=== PATIENT | male | born 1945 | race Caucasian/White ===

== ENCOUNTER 2016-10-21 09:58 | Day surgery (SDC) | payer MEDICARE, OTHER ==
[2016-10-21] VITALS (8 sets, daily range): BP systolic 112–169; BP diastolic 54–87; PULSE 51–74; RESP 14–16; O2SAT 95–100
[~2016-10-21] VITALS: Ht 190.5 cm; Wt 127.8 kg
[~2016-10-21 09:58] MED LIST: ASPI-973 PO; ESOM20CA28 PO; Gentamicin Inj 120 MG in Dextrose 5% 50 ML IV ONE; HYDR25TA4 PO; LISI-567 PO; METF500T4 PO; METO-272 PO; SIMV20TA4 PO
[2016-10-21] MEDS ORDERED: fentaNYL-PF 50 mCg/mL 2 mL Inj ONE (09:59)
[2016-10-21] MEDS ORDERED: Rocuronium 10 mg/mL 5 mL Inj ONE (09:59)
[2016-10-21] MEDS ORDERED: Propofol 10,000 mCg/mL 20 mL Inj ONE (09:59)
[2016-10-21] MEDS ORDERED: Glycopyrrolate 0.2 mg/mL 5 mL Inj ONE (09:59)
[2016-10-21] MEDS ORDERED: Ondansetron 2 mg/mL 2 mL Inj ONE (09:59)
[2016-10-21] MEDS ORDERED: Neostigmine 1 mg/mL 5 mL Inj ONE (09:59)
[2016-10-21] MEDS ORDERED: MetoCLOpramide 5 mg/mL 2 mL Inj ONE (09:59)
[2016-10-21] MEDS: Lactated Ringer's 1,000 ML IV SCH ×2 (12:21→13:03)
[2016-10-21] MEDS ORDERED: Famotidine 20 mg/50 mL NS Premix IV ONE (12:51)
[2016-10-21] MEDS ORDERED: Belladonna Alk-Opium 60 mg Rectal Suppository RECTAL ONE ×2 (12:53→13:21)
[2016-10-21] MEDS ORDERED: Lactated Ringer's 500 ML IV PRN (13:19)
[2016-10-21] MEDS ORDERED: Lactated Ringer's 1,000 ML IV SCH (13:19)
--- NOTE | 2016-10-21 13:19 | PCM.HPANE ---
Patient Data Surgeon Admitting Provider: Attending Provider:Codi Servin MD Primary Care Physician:Jere Valencia MD Other Provider:[facility] Anesthesia Reason for Visit Left Ureteral Stone Ht/WT & BMI Height (Feet): 6 Height (Inches): 3 Weight (Kilograms): 120.9 Body Mass Index 33.00 Allergies Coded Allergies: Penicillins (Verified Allergy, Unknown, 10/21/16) Diabetes History Hx Diabetes?: Yes Type of Diabetes: Type II Glycemic Control: Oral Medication MRSA MRSA: No Medications Blood Thinner: Aspirin Last Dose Blood Thinner: Oct 18, 2016 Hypertension Medication: Yes Home Meds Incl Beta Nicholas: Yes (metoprolol) Reported Medications Simvastatin 20 Mg Mmytxj64 Mg PO HS Ref 0 10/20/16 Esomeprazole Magnesium (Nexium)20 Mg Capsule.dr20 Mg PO DAILY Ref 0 10/20/16 Metformin 500 Mg Tablet1,000 Mg PO BID Ref 0 10/20/16 Metoprolol Succinate ER 50 Mg Tab.er.24h50 Mg PO DAILY Ref 0 10/20/16 Lisinopril 20 Mg Hqvavo65 Mg PO DAILY 30 Days Ref 0 10/20/16 Hydrochlorothiazide 25 Mg Bmdahz40 Mg PO DAILY 30 Days Ref 0 10/20/16 Aspirin 81 Mg Npjzxa51 Mg PO DAILY Ref 0 10/20/16 History History of ENT Problems?: No Hx of Heart Problems?: Yes Cardiovascular History: Positive for:: Coronary Artery Disease (hyperlipedemia ) Hypertension Hx of Respiratory Problem?: No Hx Neurologic Problems?: No Hx of GI Problems?: Yes Gastrointestinal History: Positive for:: Gastroesphageal Reflux Hx of Problems?: Yes Genitourinary History: Positive for:: Kidney Stones Urinary Tract Infection Male Hx: Positive for:: Prostate Problems Skin History: Denies:: History Skin Disorders? Hx Musculoskeletal Problems?: Yes Musculoskeletal History: Positive for:: Back Injury (back pain) Hx Diabetes: Yes Stop/Bang Risk Assessment Category Category 1A: Patient has history of documented sleep apnea, and HAS NOT received any narcotic, sedative or anesthesia administration during this stay. Category 1B: Patient has history of documented sleep apnea, and HAS received any narcotic , sedative or anesthesia administration during this stay Category 2: Patient has SUSPECTED Obstructive Sleep Apnea, and HAS received any narcotic , sedative or anesthesia administration during this stay. Category 3: Patient has SUSPECTED Obstructive Sleep Apnea and HAS NOT received narcotic, sedative or anesthesia administration during this stay. Category 4: Outpatient in Procedural Areas with known sleep apnea or who screen positive for High Risk via the STOP/BANG questionnaire. Exam Exam General Appearance: Alert, Oriented X3, Cooperative, No Acute Distress HEENT/AIRWAY: MP 2, Neck Movement (FROM, large neck circumference) Lungs: Clear to Auscultation, Normal Air Movement Heart: Exam Unremarkable, Regular Rate/Rhythm, No Murmurs/Rubs/Gallops Plan Impression Patient chart reviewed, patient interviewed and anesthestic plan with risks, benefits, and alternatives discussed, and informed consent obtained. NPO Status: > 8 hrs ASA Physical Status: ASA3 Severe Disease (BMI 35) Anesthetic Support Modalities: [place] Scope Anesthetic Plan: GA Bene/Risks/Altern/Consents: Yes HP Complete Prior to Induction: Yes Medardo Esparza MD Oct 21, 2016 11:45
[2016-10-21] MEDS ORDERED: hydrALAZINE 20 mg/mL Inj IVPUSH PRN (13:20)
[2016-10-21] MEDS ORDERED: Ondansetron 2 mg/mL 2 mL Inj IVPUSH PRN (13:20)
[2016-10-21] MEDS ORDERED: MetoCLOpramide 5 mg/mL 2 mL Inj IVPUSH PRN (13:20)
[2016-10-21] MEDS ORDERED: Phenylephrine 10,000 mCg/mL Inj IVPUSH PRN (13:20)
[2016-10-21] MEDS ORDERED: fentaNYL-PF 50 mCg/mL 2 mL Inj IVPUSH PRN (13:20)
[2016-10-21] MEDS ORDERED: Labetalol 5 mg/mL 4 mL Inj IV PRN (13:20)
[2016-10-21] MEDS ORDERED: Atropine 0.4 mg/mL Inj IVPUSH PRN (13:20)
[2016-10-21] MEDS ORDERED: EPHEDrine Sulfate 50 mg/mL Inj IVPUSH PRN (13:20)
[2016-10-21] MEDS ORDERED: Ondansetron 8 mg ODT Tablet PO PRN (13:35)
[2016-10-21] MEDS ORDERED: HYDROcodone-APAP 5-325 mg Tablet PO PRN (13:35)
[2016-10-21] MEDS ORDERED: oxyCODONE-Acetamin 5-325 mg Tablet PO PRN (13:35)
--- NOTE | 2016-10-21 13:48 | PCM.ANEP2 ---
Post Anesthesia Evaluation ASA/CMS Post Anesthesia VS in Patient's Normal Range?: Yes Resp Stable; Airway Patent?: Yes CV Function & Hydration Stable: Yes Mental Status Recovered?: Yes Pain control Satisfactory?: Yes N/V Control Satisfactory?: Yes Medardo Esparza MD Oct 21, 2016 13:48
--- NOTE | 2016-10-21 13:48 | PCM.ANEP1 ---
Post Anesthesia Phase 1 PACU Phase 1 Assessment Vital Signs Vital Signs Date Time Temp Pulse Resp B/P Pulse Ox O2 Delivery O2 Flow Rate FiO2 10/21/16 13:40 59 16 149/81 100 Simple Mask 10 10/21/16 13:35 37 58 16 169/87 100 Simple Mask 10 10/21/16 12:27 36.2 51 16 155/83 98 Room Air 10/21/16 12:23 CPAP/BIPAP Anesthetic Administered: GA Level of Alertness: Awake, talking WARD's with Equal Strength: Yes Pain: No Nausea or Vomiting: No Oxygen Delivery: Simple Mask Lungs: Clear to Auscultation, Normal Air Movement Dermatome Level: Full Sensation Medardo Esparza MD Oct 21, 2016 13:48
--- NOTE | 2016-10-21 15:34 | OP ---
[address] [address] OPERATIVE REPORT PATIENT: AYALA BUCKNER : 1945 MR#: [id number] ADMIT: 10/21/2016 JOB ID: [id number] DATE OF SURGERY: 10/21/2016 SURGEON: Codi Servin MD. PREOPERATIVE DIAGNOSIS(ES): Left renal calculus. POSTOPERATIVE DIAGNOSIS(ES): Left renal calculus. PROCEDURE: 1. Cystoscopy. 2. Insertion of left ureteral stent. ANESTHESIA: General anesthetic, Dr. Esparza. DESCRIPTION OF PROCEDURE: Under general anesthetic, the patient was placed in lithotomy position. Genitalia prepped and draped in a sterile manner. A 22-Barbadian cystoscope was introduced through a normal urethra. A 0.035 Glidewire was advanced to the level of the left renal pelvis. Over this, a balloon dilation catheter was used to dilate the distal ureter. A 14-Barbadian access sheath was then passed over the wire. It could be passed just above the iliac vessels. Then, significant resistance was met. At this point, it was elected to place a stent and return for the procedure in one week's time after there has been sufficient ureteral dilation. The access sheath was withdrawn, and a 6-Barbadian 24-cm double-J stent was then passed over the wire. When the stent was confirmed to be in good position, the string was cut and removed, and the wire withdrawn. A B and O suppository was given for postoperative analgesia. The patient tolerated the procedure well, left the operating room in good condition.
[2016-10-21] MEDS ORDERED: Belladonna Alk-Opium 60 mg Rectal Suppository RECTAL SCH (20:30)
== END 2016-10-21 23:59 | disposition home or self-care (01) ==
LOC: SAS 09:58
PROVIDERS: ATTEND Urology
DX: N20.1 Calculus of ureter (principal); Z87.891 Personal history of nicotine dependence
CPT/HCPCS: 52332; 76000; C2617; J1580; J2405; J2710; J2765; J3490; J7120

== ENCOUNTER 2016-10-29 06:26 | Day surgery (SDC) | payer MEDICARE, OTHER ==
[~2016-10-29] VITALS: Ht 190.5 cm; Wt 123.6 kg
[~2016-10-29 06:26] MED LIST changes: +Gentamicin Inj 120 MG in Dextrose 5% 100 ML IV ONE; -Gentamicin Inj 120 MG in Dextrose 5% 50 ML IV ONE
[2016-10-29] MEDS ORDERED: fentaNYL-PF 50 mCg/mL 2 mL Inj ONE (06:27)
[2016-10-29] MEDS ORDERED: Propofol 10,000 mCg/mL 20 mL Inj ONE (06:27)
[2016-10-29] MEDS ORDERED: Dexamethasone 4 mg/mL Inj ONE (06:27)
[2016-10-29] MEDS ORDERED: Ondansetron 2 mg/mL 2 mL Inj ONE (06:27)
--- NOTE | 2016-10-29 06:36 | PCM.HPANE ---
Patient Data Surgeon Admitting Provider: Attending Provider:Codi Servin MD Primary Care Physician:Jere Valencia MD Other Provider:[facility] Anesthesia Reason for Visit Left Ureteral Stone Ht/WT & BMI Height (Feet): 6 Height (Inches): 3 Weight (Kilograms): 120.9 Body Mass Index 33.00 Allergies Coded Allergies: Penicillins (Verified Allergy, Unknown, 10/21/16) Past Anesthesia History Anesthesia History: Denies:: Anesthesia Reactions, Fam Anesthesia Reaction Diabetes History Hx Diabetes?: Yes Type of Diabetes: Type II Glycemic Control: Oral Medication MRSA MRSA: No Medications Blood Thinner: Aspirin Hypertension Medication: Yes Home Meds Incl Beta Nicholas: No Reported Medications Simvastatin 20 Mg Lfhuoe61 Mg PO HS Ref 0 10/20/16 Esomeprazole Magnesium (Nexium)20 Mg Capsule.dr20 Mg PO DAILY Ref 0 10/20/16 Metformin 500 Mg Tablet1,000 Mg PO BID Ref 0 10/20/16 Metoprolol Succinate ER 50 Mg Tab.er.24h50 Mg PO DAILY Ref 0 10/20/16 Lisinopril 20 Mg Aakhdw14 Mg PO DAILY 30 Days Ref 0 10/20/16 Hydrochlorothiazide 25 Mg Jtqfde62 Mg PO DAILY 30 Days Ref 0 10/20/16 Aspirin 81 Mg Hjsqtz69 Mg PO DAILY Ref 0 10/20/16 History History of ENT Problems?: No Hx of Heart Problems?: Yes Cardiovascular History: Positive for:: Hypertension Denies:: AICD Heart Murmur Irregular Heartbeat Pacemaker Hx of Respiratory Problem?: No Respiratory History: Denies:: Asthma COPD Emphysema Oxygen Administration Pneumonia Tuberculosis Use of C-PAP Machine Hx Neurologic Problems?: No Neurological History: Denies:: CVA Headaches Multiple Sclerosis Parkinson's Disease Seizures Hx of GI Problems?: Yes Gastrointestinal History: Positive for:: Gastroesphageal Reflux Hx of Problems?: Yes Genitourinary History: Positive for:: Kidney Stones (left ureteral stone current admission problem) Denies:: Urinary Tract Infection (hx of not currently) Other Pertinent History: surgery here 10/22/16 Male Hx: Positive for:: Prostate Problems Skin History: Denies:: History Skin Disorders? Hx Musculoskeletal Problems?: Yes Musculoskeletal History: Positive for:: Back Injury (back pain) Denies:: Fibromyalgia Joint Replacement Musculoskeletal Trauma Osteoarthritis Psycho Social History: Denies:: Anxiety Hx Depression Hx Surgeries?: Yes (cysto, stent) Hx Any Other Health Problems?: Yes Other History: Denies:: Cancer Thyroid Disease Hx Diabetes: Yes Stop/Bang S-Snoring: Do You Snore Loudly: No T-Tired: feel tired, fatigued: No O-Obsered: Observed not breath: No P-Blood Pressure: treated: Yes B- Body Mass Index > 35 kg/m2: No A- Age over 50: Yes N- Neck Large Circumference: No G- Gender Male: Yes ILSA Total Score: 3 ILSA Risk Assessment: High Risk, =/>3 Yes ILSA Category 2: Yes Risk Assessment Category Category 1A: Patient has history of documented sleep apnea, and HAS NOT received any narcotic, sedative or anesthesia administration during this stay. Category 1B: Patient has history of documented sleep apnea, and HAS received any narcotic , sedative or anesthesia administration during this stay Category 2: Patient has SUSPECTED Obstructive Sleep Apnea, and HAS received any narcotic , sedative or anesthesia administration during this stay. Category 3: Patient has SUSPECTED Obstructive Sleep Apnea and HAS NOT received narcotic, sedative or anesthesia administration during this stay. Category 4: Outpatient in Procedural Areas with known sleep apnea or who screen positive for High Risk via the STOP/BANG questionnaire. Exam Exam General Appearance: Alert, Oriented X3, Cooperative, No Acute Distress HEENT/AIRWAY: MP 2 Lungs: Clear to Auscultation, Normal Air Movement Heart: Exam Unremarkable, Regular Rate/Rhythm, No Murmurs/Rubs/Gallops Plan Impression Patient chart reviewed, patient interviewed and anesthestic plan with risks, benefits, and alternatives discussed, and informed consent obtained. NPO Status: > 8 hrs ASA Physical Status: ASA2 Mod Systemic Disease Anesthetic Plan: GA Bene/Risks/Altern/Consents: Yes HP Complete Prior to Induction: Yes Mario Navarrete MD Oct 29, 2016 06:36
[2016-10-29 07:02] VITALS: BP 123/77; PULSE 56; RESP 12; O2SAT 95
[2016-10-29] MEDS ORDERED: Gentamicin Inj 120 MG in Dextrose 5% 100 ML IV ONE (07:10)
[2016-10-29] MEDS ORDERED: Vancomycin 1,000 mg/200 mL D5W IV ONE (07:11)
[2016-10-29] MEDS: Lactated Ringer's 1,000 ML IV SCH ×2 (07:51→08:31)
[2016-10-29] MEDS ORDERED: EPHEDrine Sulfate 50 mg/mL Inj IVPUSH PRN (08:45)
[2016-10-29] MEDS ORDERED: hydrALAZINE 20 mg/mL Inj IVPUSH PRN (08:45)
[2016-10-29] MEDS ORDERED: Labetalol 5 mg/mL 4 mL Inj IV PRN (08:45)
[2016-10-29] MEDS ORDERED: HYDROmorphone 1 mg/mL Inj IVPUSH PRN (08:45)
[2016-10-29] MEDS ORDERED: fentaNYL-PF 50 mCg/mL 2 mL Inj IVPUSH PRN (08:45)
[2016-10-29] MEDS ORDERED: Atropine 0.4 mg/mL Inj IVPUSH PRN (08:45)
[2016-10-29] MEDS ORDERED: Lactated Ringer's 500 ML IV PRN (08:45)
[2016-10-29] MEDS ORDERED: Phenylephrine 10,000 mCg/mL Inj IVPUSH PRN (08:45)
[2016-10-29] MEDS ORDERED: Dexamethasone 4 mg/mL Inj IVPUSH PRN (08:45)
[2016-10-29] MEDS ORDERED: Ondansetron 2 mg/mL 2 mL Inj IVPUSH PRN (08:45)
[2016-10-29] MEDS ORDERED: MetoCLOpramide 5 mg/mL 2 mL Inj IVPUSH PRN (08:45)
[2016-10-29] MEDS ORDERED: Lactated Ringer's 1,000 ML IV SCH (08:45)
[2016-10-29] MEDS ORDERED: Belladonna Alk-Opium 60 mg Rectal Suppository RECTAL ONE ×2 (08:58→09:25)
[2016-10-29 09:36] VITALS: BP 136/85; PULSE 60; RESP 15; O2SAT 100
[2016-10-29] MEDS ORDERED: oxyCODONE-Acetamin 5-325 mg Tablet PO PRN (09:40)
[2016-10-29 09:45] VITALS: BP 127/85; PULSE 62; O2SAT 97
[2016-10-29 09:55] VITALS: BP 124/74; PULSE 64; RESP 15; O2SAT 94
[2016-10-29] MEDS ORDERED: Lactated Ringer's 1,000 ML IV ONE (10:00)
[2016-10-29 10:08] VITALS: BP 137/84; PULSE 58; RESP 14; O2SAT 98
--- NOTE | 2016-10-29 10:22 | OP ---
[address] [address] OPERATIVE REPORT PATIENT: AYALA BUCKNER : 1945 MR#: [id number] ADMIT: 10/29/2016 JOB ID: [id number] DATE OF SURGERY: 10/29/2016 SURGEON: Codi Servin MD. PREOPERATIVE DIAGNOSIS(ES): Left renal calculus. POSTOPERATIVE DIAGNOSIS(ES): Left renal calculus. PROCEDURE: 1. Cystoscopy. 2. Ureteroscopy. 3. Stone manipulation. 4. Stent change. ANESTHESIA: General anesthetic. ANESTHESIOLOGIST: Mario Navarrete MD. DESCRIPTION OF PROCEDURE: Under a general anesthetic, the patient was placed in the lithotomy position. Genitalia prepped and draped in a sterile manner. A 22-Bangladeshi cystoscope was introduced through an inflamed urethra. There was some contact bleeding from the prostatic urethra. Protruding from an edematous left ureteral orifice was a double-J stent. This was grasped with an alligator forceps and removed. A 0.035 Glidewire was then advanced to the level of the left renal pelvis. Over the Glidewire, a 45 cm 14-Bangladeshi access sheath was passed without difficulty. A 7-Bangladeshi flexible ureteroscope was then advanced up to the renal pelvis. Inspection of all calices revealed the stone to be in the lowermost calyx. Multiple attempts were made to manipulate the stone out of this calyx without success. The stone could be visualized with an empty ureteroscope which is able to deflect 180 degrees. With either a stone basket or laser fiber, the scope will only deflect to 160 degrees making the stone impossible to visualize. On fluoroscopy, the stone could be seen, so I will be scheduling him for a left ESWL. The patient tolerated the procedure well. A B and O suppository was given for postoperative analgesia. The patient left the operating room in good condition.
--- NOTE | 2016-10-29 11:17 | PCM.ANEP2 ---
Post Anesthesia Evaluation ASA/CMS Post Anesthesia VS in Patient's Normal Range?: Yes Resp Stable; Airway Patent?: Yes CV Function & Hydration Stable: Yes Mental Status Recovered?: Yes Pain control Satisfactory?: Yes N/V Control Satisfactory?: Yes Mario Navarrete MD Oct 29, 2016 11:17
--- NOTE | 2016-10-29 11:17 | PCM.ANEP1 ---
Post Anesthesia Phase 1 PACU Phase 1 Assessment Vital Signs Vital Signs Date Time Temp Pulse Resp B/P Pulse Ox O2 Delivery O2 Flow Rate FiO2 10/29/16 10:08 36.3 58 14 137/84 98 Room Air 10/29/16 09:55 64 15 124/74 94 Room Air 10/29/16 09:45 62 127/85 97 Nasal Cannula 2 10/29/16 09:36 36.3 60 15 136/85 100 Simple Mask 10/29/16 07:02 36 56 12 123/77 95 Room Air Anesthetic Administered: GA Level of Alertness: Awake, talking WARD's with Equal Strength: Yes Pain: No Nausea or Vomiting: No Oxygen Delivery: Simple Mask Lungs: Clear to Auscultation, Normal Air Movement Mario Navarrete MD Oct 29, 2016 11:17
[2016-10-29 11:53] VITALS: BP 117/82; PULSE 56; RESP 16; O2SAT 98
== END 2016-10-29 23:59 | disposition home or self-care (01) ==
LOC: SAS 06:26
PROVIDERS: ATTEND Urology
DX: I10 Essential (primary) hypertension (principal); E11.9 Type 2 diabetes mellitus without complications; Z79.84 Long term (current) use of oral hypoglycemic drugs; Z79.82 Long term (current) use of aspirin
CPT/HCPCS: 52310; 76000; C2617; J1100; J1580; J2250; J2405; J3010; J7120

== ENCOUNTER 2016-11-19 07:30 | Day surgery (SDC) | payer MEDICARE, OTHER ==
[~2016-11-19] VITALS: Ht 190.5 cm; Wt 125.2 kg
[2016-11-19] VITALS (13 sets, daily range): BP systolic 115–155; BP diastolic 73–90; PULSE 45–54; RESP 11–20; O2SAT 95–99
[~2016-11-19 07:30] MED LIST changes: -Gentamicin Inj 120 MG in Dextrose 5% 100 ML IV ONE; +Lactated Ringer's 1,000 ML IV SCH
[2016-11-19] MEDS ORDERED: Lidocaine PF 1% 30 mL Inj ONE ×2 (07:31)
[2016-11-19] MEDS ORDERED: fentaNYL-PF 50 mCg/mL 2 mL Inj ONE (07:31)
[2016-11-19] MEDS ORDERED: Dexamethasone 4 mg/mL Inj ONE ×2 (07:31)
[2016-11-19] MEDS ORDERED: Gentamicin 40 mg/mL 2 mL Inj ONE (07:31)
[2016-11-19] MEDS ORDERED: Ondansetron 2 mg/mL 2 mL Inj ONE ×2 (07:31)
[2016-11-19] MEDS ORDERED: Propofol 10,000 mCg/mL 20 mL Inj ONE ×2 (07:31)
[2016-11-19] MEDS ORDERED: Lactated Ringer's 1,000 ML IV ONE ×2 (08:18→14:12)
--- NOTE | 2016-11-19 09:11 | PCM.HPANE ---
Patient Data Date of Service: Nov 19, 2016 Surgeon Admitting Provider: Attending Provider:Codi Servin MD Primary Care Physician:Jere Valencia MD Other Provider:Angella Horan Anesthesia Reason for Visit Left Kidney Stone Ht/WT & BMI Height (Feet): 6 Height (Inches): 3.00 Height (Centimeters): 190.5 Weight (Kilograms): 125.190 Body Mass Index 34.00 Allergies Coded Allergies: Penicillins (Verified Allergy, Unknown, 10/21/16) Past Anesthesia History Anesthesia History: Denies:: Anesthesia Reactions, Fam Anesthesia Reaction Diabetes History Hx Diabetes?: Yes (type II) Type of Diabetes: Type II Glycemic Control: Oral Medication Current Bedside Blood Glucose: 132 MRSA MRSA: No Medications Blood Thinner: Aspirin Hypertension Medication: Yes Home Meds Incl Beta Nicholas: Yes (metoprolol) Date Beta Nicholas Taken: Nov 19, 2016 Time Beta Nicholas Taken: 814 Reported Medications Simvastatin 20 Mg Ckujga91 Mg PO HS Ref 0 10/20/16 Esomeprazole Magnesium (Nexium)20 Mg Capsule.dr20 Mg PO DAILY Ref 0 10/20/16 Metformin 500 Mg Tablet1,000 Mg PO BID Ref 0 10/20/16 Metoprolol Succinate ER 50 Mg Tab.er.24h50 Mg PO DAILY Ref 0 10/20/16 Lisinopril 20 Mg Uzulwr80 Mg PO DAILY 30 Days Ref 0 10/20/16 Hydrochlorothiazide 25 Mg Eietwr68 Mg PO DAILY 30 Days Ref 0 10/20/16 Aspirin 81 Mg Qeacwa69 Mg PO DAILY Ref 0 10/20/16 History History of ENT Problems?: No Hx of Heart Problems?: Yes Cardiovascular History: Positive for:: Hypertension Denies:: AICD Heart Murmur Irregular Heartbeat (hx of bradycardia) Pacemaker Hx of Respiratory Problem?: No Respiratory History: Positive for:: Use of C-PAP Machine (INSTRUCTED TO BRING C-PAP, has ILSA) Denies:: Asthma COPD Emphysema Oxygen Administration Pneumonia Tuberculosis Hx Neurologic Problems?: No Neurological History: Denies:: CVA Headaches Multiple Sclerosis Parkinson's Disease Seizures Hx of GI Problems?: Yes Gastrointestinal History: Positive for:: Gastroesphageal Reflux Hx of Problems?: Yes Genitourinary History: Positive for:: Kidney Stones (left ureteral stone current admission problem) Denies:: Urinary Tract Infection (hx of not currently) Male Hx: Positive for:: Prostate Problems Skin History: Denies:: History Skin Disorders? Hx Musculoskeletal Problems?: Yes Musculoskeletal History: Positive for:: Back Injury (back pain) Denies:: Joint Replacement Musculoskeletal Trauma Psycho Social History: Denies:: Anxiety Hx Depression Hx Surgeries?: Yes (cysto, stent) Hx Any Other Health Problems?: Yes Other History: Denies:: Cancer Thyroid Disease Hx Diabetes: Yes (type II)Bedside Blood Glucose: 132 Smoking Status: Unknown if Ever Smoker Stop/Bang Treated for Sleep Apnea?: Yes Do You Have a CPAP Machine?: Yes ILSA Category 4 OutPt Procedure: Yes Risk Assessment Category Category 1A: Patient has history of documented sleep apnea, and HAS NOT received any narcotic, sedative or anesthesia administration during this stay. Category 1B: Patient has history of documented sleep apnea, and HAS received any narcotic , sedative or anesthesia administration during this stay Category 2: Patient has SUSPECTED Obstructive Sleep Apnea, and HAS received any narcotic , sedative or anesthesia administration during this stay. Category 3: Patient has SUSPECTED Obstructive Sleep Apnea and HAS NOT received narcotic, sedative or anesthesia administration during this stay. Category 4: Outpatient in Procedural Areas with known sleep apnea or who screen positive for High Risk via the STOP/BANG questionnaire. Exam Exam Vital Signs Vital Signs Date Time Temp Pulse Resp B/P Pulse Ox O2 Delivery O2 Flow Rate FiO2 11/19/16 08:26 35.9 53 20 115/83 98 Room Air General Appearance: Alert, Oriented X3, Cooperative, No Acute Distress HEENT/AIRWAY: MP 2, Neck Movement (from), Mouth Opening (3 fb) Lungs: Clear to Auscultation, Normal Air Movement Heart: Exam Unremarkable, Regular Rate/Rhythm, No Murmurs/Rubs/Gallops Meds/Labs/Diagnostics Admission Meds Current Medications Lactated Ringer's (Lr) 1,000 ml @ ud STK-MED ONCE IV Last administered on 11/19t 08:18; Start 11/19/16 at 08:18; Stop 11/19/16 at 08:19; Status DC Bedside Blood Glucose: 132 Plan Impression Patient chart reviewed, patient interviewed and anesthestic plan with risks, benefits, and alternatives discussed, and informed consent obtained. NPO Status: 11/18 @2100, water w am Rx 0815 ASA Physical Status: ASA2 Mod Systemic Disease Anesthetic Plan: GA Bene/Risks/Altern/Consents: Yes HP Complete Prior to Induction: Yes Other Plan to image with fluoroscopy while awake to make sure stone is visualized prior to induction of anesthesia. If cannot image stone, will about procedure. Gigi Aguilar MD Nov 19, 2016 09:11
--- NOTE | 2016-11-19 09:35 | DRSVH ---
PROCEDURE: X-RAY KUB ([id number]) INDICATIONS: LEFT URETERAL STONE TECHNIQUE: One view of the abdomen acquired. COMPARISON: None. FINDINGS: Surgical changes and devices: Left ureteral stent. Bowel: Bowel gas pattern is normal. Soft tissues: No suspicious abdominal calcifications. Visualized solid organ contours appear normal in size. Right hemipelvic calcification likely a phlebolith. Bones: No suspicious bony lesions. IMPRESSION: Left ureteral stent present in expected position and no definite radiopaque ureteral ston e seen. Dictated by: Braden BELLO Interpreted: Sis Copeland MD on 11/19/2016 at 9:33 Transcribed by: GOLDY on 11/19/2016 at 9:34 Approved by: Sis Copeland M.D. on 11/19/2016 at 16:56
[2016-11-19] MEDS ORDERED: Belladonna Alk-Opium 60 mg Rectal Suppository RECTAL ONE (14:09)
[2016-11-19] MEDS ORDERED: Gentamicin 40 mg/mL 2 mL Inj IRRIGATION ONE (14:28)
[2016-11-19] MEDS ORDERED: Lactated Ringer's 500 ML IV PRN (14:44)
[2016-11-19] MEDS ORDERED: Lactated Ringer's 1,000 ML IV SCH (14:44)
[2016-11-19] MEDS ORDERED: EPHEDrine Sulfate 50 mg/mL Inj IM PRN (14:45)
[2016-11-19] MEDS ORDERED: Phenylephrine 10,000 mCg/mL Inj IVPUSH PRN (14:45)
[2016-11-19] MEDS ORDERED: Labetalol 5 mg/mL 4 mL Inj IV PRN (14:45)
[2016-11-19] MEDS ORDERED: Ondansetron 2 mg/mL 2 mL Inj IVPUSH PRN (14:45)
[2016-11-19] MEDS ORDERED: fentaNYL-PF 50 mCg/mL 2 mL Inj IVPUSH PRN (14:45)
[2016-11-19] MEDS ORDERED: EPHEDrine Sulfate 50 mg/mL Inj IVPUSH PRN (14:45)
[2016-11-19] MEDS ORDERED: HYDROmorphone 1 mg/mL Inj IVPUSH PRN (14:45)
[2016-11-19] MEDS ORDERED: hydrALAZINE 20 mg/mL Inj IVPUSH PRN (14:45)
[2016-11-19] MEDS ORDERED: oxyCODONE-Acetamin 5-325 mg Tablet PO PRN (14:55)
--- NOTE | 2016-11-19 15:18 | PCM.ANEP1 ---
Post Anesthesia Phase 1 PACU Phase 1 Assessment Date of Service: Nov 19, 2016 Vital Signs Vital Signs Date Time Temp Pulse Resp B/P Pulse Ox O2 Delivery O2 Flow Rate FiO2 11/19/16 15:00 54 16 150/83 99 Simple Mask 8 11/19/16 14:55 36.5 53 15 141/89 99 Simple Mask 8 11/19/16 13:18 36.5 54 14 130/73 96 Room Air 11/19/16 10:24 48 20 155/75 97 11/19/16 08:26 35.9 53 20 115/83 98 Room Air Anesthetic Administered: GA Level of Alertness: Awake, talking WARD's with Equal Strength: Yes Pain: No Nausea or Vomiting: No Airway Device: Nasal Airway (removed upon arrival to PACU as patient more awake ) Oxygen Delivery: Simple Mask Lungs: Clear to Auscultation, Normal Air Movement Dermatome Level: Full Sensation Gigi Aguilar MD Nov 19, 2016 15:18
--- NOTE | 2016-11-19 16:48 | OP ---
[address] [address] OPERATIVE REPORT PATIENT: AYALA BUCKNER : 1945 MR#: [id number] ADMIT: 11/19/2016 JOB ID: [id number] DATE OF SURGERY: 11/19/2016 SURGEON: Codi Servin MD PREOPERATIVE DIAGNOSIS(ES): Left renal calculus. POSTOPERATIVE DIAGNOSIS(ES): PROCEDURE: Cystoscopy, ureteroscopy, and stent removal. ANESTHESIA: General anesthetic, Dr. Carlos. DESCRIPTION OF PROCEDURE: Without anesthesia fluoroscopy was performed and the stone could not be visualized; therefore, ESWL was not done. It was elected to proceed with cystoscopy and ureteroscopy. Under general anesthetic, the patient was placed in lithotomy position. Genitalia prepped and draped in a sterile manner. A 22-Somali cystoscope was introduced through a normal urethra. Protruding from the left ureteral orifice was a double-J stent. This was grasped with a flexible alligator forceps and removed. A 0.035 Glidewire was advanced to the level of the left renal pelvis. A 14-Somali 55-cm access sheath was passed over the wire without difficulty. The wire and inner sheath were removed. A 7-Somali flexible ureteroscope was then passed through the access sheath into the renal pelvis. All calyces were inspected. No stone was found. The sheath and the ureteroscope were then withdrawn, inspecting the entire ureter, without any identification of stone. The patient tolerated the procedure well. It was elected not to leave a stent in at this time. It would appear that some time over the last few weeks, with the stent in place, the stone has passed. The patient does not recall passing the stone. I will see him back next week in followup.
--- NOTE | 2016-11-20 06:33 | PCM.ANEP2 ---
Post Anesthesia Evaluation ASA/CMS Post Anesthesia Date of Service: Nov 19, 2016 VS in Patient's Normal Range?: Yes Resp Stable; Airway Patent?: Yes CV Function & Hydration Stable: Yes Mental Status Recovered?: Yes Pain control Satisfactory?: Yes N/V Control Satisfactory?: Yes Gigi Aguilar MD Nov 20, 2016 06:33
== END 2016-11-19 23:59 | disposition home or self-care (01) ==
LOC: SAS 07:30
PROVIDERS: ATTEND Urology
DX: N20.1 Calculus of ureter (principal); I10 Essential (primary) hypertension; E11.9 Type 2 diabetes mellitus without complications; G47.33 Obstructive sleep apnea (adult) (pediatric); K21.9 Gastro-esophageal reflux disease without esophagitis; Z79.82 Long term (current) use of aspirin; Z79.84 Long term (current) use of oral hypoglycemic drugs; Z87.891 Personal history of nicotine dependence
CPT/HCPCS: 52310; 74000; 76000; J1100; J1580; J2405; J3010; J7120